=== PATIENT | female | born 1990 | race Caucasian/White ===

== ENCOUNTER 2024-06-19 23:23 | Emergency (ER) | payer BC ==
[~2024-06-19] VITALS: Ht 170.2 cm; Wt 75.9 kg
[2024-06-19 23:36] VITALS: O2SAT 99
[2024-06-20] MEDS: ACETAMINOPHEN 325MG TABLET PO ONE
[2024-06-20] MEDS: LIDOCAINE HCL/EPINEPHRINE 1%-EPI 1:100,000 20ML VIAL INFIL ONE
[2024-06-20] MEDS: TETANUS, DIPHTHERIA, PERTUSSIS VAC/PF 0.5ML (>10YR OLD) IM ONE
[2024-06-20 01:00] VITALS: BP 121/75; PULSE 80; RESP 16; TEMP 36.66960; O2SAT 99
[2024-06-20] MEDS ORDERED: CEPH500T MT (01:16)
== END 2024-06-20 01:20 | disposition home or self-care (01) ==
LOC: ER 23:23
DX: S81.011A Laceration without foreign body, right knee, initial encounter (principal); W45.0XXA Nail entering through skin, initial encounter; Y93.89 Activity, other specified; Y92.89 Other specified places as the place of occurrence of the external cause; Y99.8 Other external cause status
CPT/HCPCS: 12002; 99283; 90715; 90471; J3490; Z7610 ×4